=== PATIENT | male | born 1960 | race Caucasian/White ===

== ENCOUNTER → 2025-04-12 08:13 | Outpatient (REF) | payer OTHER, SELFPAY | LOC: RCS 08:13 | PROVIDERS: ATTENDING PHYSICIAN Internal Medicine Cardiovascular Disease; FAMILY PHYSICIAN Family Medicine | DX: I42.6 Alcoholic cardiomyopathy (principal); I48.21 Permanent atrial fibrillation | CPT/HCPCS: 93306; Q9950 ==